=== PATIENT | male | born 2000 | race African-American/Black ===

== ENCOUNTER 2024-12-21 14:11 | Emergency (ER) | payer SELFPAY ==
[2024-12-21 14:13] VITALS: BP 118/71; PULSE 98; RESP 16; TEMP 36.6; O2SAT 98
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
== END 2024-12-21 16:17 | disposition home or self-care (01) ==
PROVIDERS: Emergency Provider Emergency Medicine
DX: S01.111A Laceration without foreign body of right eyelid and periocular area, initial encounter (principal); Y04.0XXA Assault by unarmed brawl or fight, initial encounter
CPT/HCPCS: 12013; 99282